=== PATIENT | female | born 1995 | race Caucasian/White ===

== ENCOUNTER 2017-03-03 17:29 | Inpatient (IN) | payer OTHER ==
[~2017-03-03] VITALS: Ht 157.5 cm; Wt 63.4 kg
[~2017-03-03 17:29] MED LIST: CEPH500C PO; HYDR-906 PO; IBUP-1542 PO; METO10TA92 PO; METR500T14 PO; POLY17PO6 PO; PREN-39 PO
[2017-03-03] MEDS ORDERED: FERR236T PO (18:13)
[2017-03-03 18:15] VITALS: BP 118/77; PULSE 97; RESP 18
[2017-03-03] MEDS ORDERED: LACTATED RINGER'S 1,000 ML IV SCH (19:59)
[2017-03-03] MEDS ORDERED: IBUPROFEN 600 MG TAB PO PRN (20:00)
[2017-03-03] MEDS ORDERED: METHYLERGONOVINE 0.2 MG INJ IM PRN (20:00)
[2017-03-03] MEDS ORDERED: OXYTOCIN 30 UNITS/LR 500 ML IV PRN (20:00)
[2017-03-03] MEDS ORDERED: ACETAMINOPHEN/CODEINE #3 TAB PO PRN (20:00)
[2017-03-03] MEDS ORDERED: LACTATED RINGER'S 1,000 ML IV PRN (20:00)
[2017-03-03] MEDS ORDERED: OXYTOCIN 30 UNITS/LR 500 ML IV SCH ×2 (20:00)
[2017-03-03] MEDS ORDERED: LIDOCAINE 1% (MPF) 30 ML INJ INJ PRN (20:00)
[2017-03-03] MEDS ORDERED: MISOPROSTOL 200 MCG TAB PR PRN (20:00)
[2017-03-03] MEDS ORDERED: AMPICILLIN 2 GM/NS (PMX) 100 ML IV ONE (20:00)
[2017-03-03] MEDS ORDERED: BUTORPHANOL 2 MG INJ IV PRN ×2 (20:00)
[2017-03-03] MEDS ORDERED: CARBOPROST 250 MCG INJ IM PRN (20:00)
--- NOTE | 2017-03-03 20:29 | HP ---
Date/Time of Note Date/Time of Note DATE: 03/03/17 TIME: 20:28 OB - History Hx of Present Free Text/Dictation @37+wks early labor : 2 Para: 1 Care: Good Care Ultrasounds: Normal mid trimester US Obstetrical Complications: None Medical Complications: None Past Family/Social History * Past Medical, Surgical, Family and Obstetric Histories reviewed from chart. OB Admission Exam Vital Signs Vital Signs Vital Signs Date Time Temp Pulse Resp B/P Pulse Ox O2 Delivery O2 Flow Rate FiO2 03/03/17 18:15 98.4 97 18 118/77 98 Room Air Physical Exam Cervical Dilatation: 4cm Effacement: 75% Station: -1 Membranes: Intact Heart Rate: 140's Accelerations: Accelerations Present Decelerations: No Decelerations Varibility: Moderate Contractions on Admission: 6-10 Minutes Apart OB Assessment/Plan Reason for admission: observation Plan: Expectant Management MICHELLE MUHAMMAD M.D. Mar 03, 2017 20:29
[2017-03-03] MEDS ORDERED: MINERAL OIL LIGHT 10 ML VIAL TOP PRN (20:30)
--- NOTE | 2017-03-03 20:59 | RADRPT ---
PROCEDURE: Obstetrical ultrasound greater than 14 weeks CLINICAL INDICATION: Contractions. No records TECHNIQUE: Real time sonographic imaging of the gravid uterus is performed transabdominally and mu ltiple static torre scale and Doppler images are submitted for review as are measurements. The image s are reviewed on the PACS. COMPARISON: No relevant exams are available FINDINGS: There is a single living intrauterine gestation in cephalic presentation. The heart beat is estimated at 144 bpm. The measurements are as follows: BPD:8.74 cm HC:32.12 cm AC:32.64 cm FL:7.20 cm Estimated gestational age is 36 weeks 2 days. The estimated date of delivery is 03/29/2017. The estimated weight is 2945 grams. Placenta is fundal and grade 3. There is no evidence of placenta previa or abruption. The amniotic fluid index is normal estimated at 12 cm. RPTAT:HJJR IMPRESSION: 1. Single viable intrauterine gestation in cephalic presentation estimated at 36 weeks 2 days with t he estimated date of delivery 03/29/2017. 2. Estimated weight 2945 g. 3. Amniotic fluid index of 12 cm Physician Jose Alfredo Date Time Electronically viewed and signed by Physician Jose Alfredo on 03/03/2017 20:59 JR/
[2017-03-03 21:50] LABS: ADD SCAN DIFF NO
[2017-03-03 21:55] LABS: BASOPHILS % 0.2 % (0.0-2.0); EOSINOPHILS % 0.3 % (0.0-7.0); HEMATOCRIT 36.6 % (37.0-47.0); HEMOGLOBIN 11.8 g/dl (12.0-16.0); LYMPHOCYTES # 2.6 10^3/ul (0.8-2.9); LYMPHOCYTES % 17.5 % (15.0-51.0); MEAN CORPUSCULAR HEMOGLOBIN 25.9 pg (29.0-33.0); MEAN CORPUSCULAR HGB CONC 32.2 g/dl (32.0-37.0); MEAN CORPUSCULAR VOLUME 80.3 fl (82.0-101.0); MEAN PLATELET VOLUME 10.2 fl (7.4-10.4); MONOCYTE # 1.1 10^3/ul (0.3-0.9); MONOCYTES % 7.4 % (0.0-11.0); NEUTROPHIL # 10.8 10^3/ul (1.6-7.5); NEUTROPHILS % 73.7 % (39.0-77.0); PLATELET COUNT 272 10^3/UL (140-415); RED BLOOD COUNT 4.56 10^6/ul (4.20-5.40); RED CELL DISTRIBUTION WIDTH 12.8 % (11.5-14.5); WHITE BLOOD COUNT 14.6 10^3/ul (4.8-10.8)
[2017-03-03] MEDS ORDERED: FENTAnyl 2MCG/ML-ROPIV 0.2% 100 ML ONE (21:57)
--- NOTE | 2017-03-03 22:29 | LDN ---
Date/Time of Note Date/Time of Note DATE: 03/03/17 TIME: 22:28 Delivery Summary Weeks of Gestation 37+ Placenta Delivered: Spontaneously Meconium: none Episiotomy: No Anesthesia type: Epidural Estimated blood loss: 200 Sponge & Needle done & correct: Yes All needle counts correct: Yes Any foreign bodies felt in the: No Problems: Delivery Information Apgars 1 Minute: 9 5 Minute: 9 Suctioning Nose & mouth suctioned at sai: Yes Delee suction performed: Yes Umbilical Cord Umbilical cord with: 3 Vessels Cord presentations: no nuchal cord Cord Blood was obtained: Yes Mother & Baby Disposition Disposition Mom & Baby to Maternity; Good: Yes Baby to NICU: No MICHELLE MUHAMMAD M.D. Mar 03, 2017 22:28
[2017-03-03 22:44] LABS: INR 0.93; PARTIAL THROMBOPLASTIN TIME 26.4 Sec (25.0-35.0); PROTIME 12.5 Sec (12.2-14.2)
[2017-03-03] MEDS ORDERED: FENTAnyl 2MCG/ML-ROPIV 0.2% 100 ML BAG EPI SCH (23:30)
[2017-03-03] MEDS ORDERED: NALOXONE (0.4 MG/ML) INJ IV PRN (23:30)
[2017-03-03] MEDS ORDERED: HYDROmorphONE 1 MG/ML SYG IV PRN ×2 (23:30)
[2017-03-03] MEDS ORDERED: ZOLPIDEM 5 MG TAB PO PRN (23:30)
[2017-03-03] MEDS ORDERED: DIPHENHYDRAMINE 50 MG INJ IV PRN (23:30)
[2017-03-03] MEDS ORDERED: ONDANSETRON 4 MG INJ IV PRN (23:30)
[2017-03-04] VITALS (7 sets, daily range): BP systolic 101–122; BP diastolic 51–68; PULSE 75–86; RESP 18
[2017-03-04] MEDS ORDERED: AMPICILLIN 1 GM/NS (PMX) 50 ML IV SCH
[2017-03-04] MEDS: LACTATED RINGER'S 1,000 ML IV* SCH ×3 (01:10→17:10)
[2017-03-04] MEDS ORDERED: SENNA/DOCUSATE NA (8.6MG/50MG) TAB PO PRN (01:30)
[2017-03-04] MEDS ORDERED: CARBOPROST 250 MCG INJ IM PRN (01:30)
[2017-03-04] MEDS ORDERED: BENZOCAINE 20% 56 ML SPRAY TOP PRN (01:30)
[2017-03-04] MEDS ORDERED: OXYTOCIN 30 UNITS/LR 500 ML IV PRN (01:30)
[2017-03-04] MEDS ORDERED: OXYCODONE/ASPIRIN (4.88/325) TAB PO PRN (01:30)
[2017-03-04] MEDS ORDERED: WITCH HAZEL/GLYCERIN PAD PR PRN (01:30)
[2017-03-04] MEDS ORDERED: MISOPROSTOL 200 MCG TAB PR PRN (01:30)
[2017-03-04] MEDS ORDERED: LANOLIN 7 GM TUBE TOP PRN (01:30)
[2017-03-04] MEDS ORDERED: ZOLPIDEM 5 MG TAB PO PRN (01:30)
[2017-03-04] MEDS ORDERED: METHYLERGONOVINE 0.2 MG INJ IM PRN (01:30)
[2017-03-04] MEDS: IBUPROFEN 600 MG TAB PO SCH ×3 (06:11→17:36)
[2017-03-04 06:43] LABS: ADD SCAN DIFF NO
[2017-03-04 06:54] LABS: ABNORMAL IP MESSAGE 1; BASOPHILS % 0.2 % (0.0-2.0); EOSINOPHILS # 0.1 10^3/ul (0.0-0.5); EOSINOPHILS % 0.3 % (0.0-7.0); HEMATOCRIT 33.8 % (37.0-47.0); HEMOGLOBIN 10.9 g/dl (12.0-16.0); LYMPHOCYTES # 3.1 10^3/ul (0.8-2.9); LYMPHOCYTES % 16.3 % (15.0-51.0); MEAN CORPUSCULAR HEMOGLOBIN 26.4 pg (29.0-33.0); MEAN CORPUSCULAR HGB CONC 32.2 g/dl (32.0-37.0); MEAN CORPUSCULAR VOLUME 81.8 fl (82.0-101.0); MEAN PLATELET VOLUME 10.4 fl (7.4-10.4); MONOCYTE # 1.7 10^3/ul (0.3-0.9); MONOCYTES % 8.8 % (0.0-11.0); NEUTROPHIL # 13.9 10^3/ul (1.6-7.5); NEUTROPHILS % 73.7 % (39.0-77.0); PLATELET COUNT 234 10^3/UL (140-415); RED BLOOD COUNT 4.13 10^6/ul (4.20-5.40); WHITE BLOOD COUNT 18.8 10^3/ul (4.8-10.8)
[2017-03-04] MEDS: SENNA/DOCUSATE NA (8.6MG/50MG) TAB PO SCH ×2 (09:19→20:53)
--- NOTE | 2017-03-04 17:39 | CONS ---
Date/Time of Note Date/Time of Note DATE: 03/04/17 TIME: 17:30 Consultation Date/Type/Reason Admit Date/Time Mar 03, 2017 at 20:06 OB triage consult Reason for Consultation This patient is a 21 years old 2 para 1 with estimated date of confinement of March 22, 2017 which makes her 37 weeks and 2 days now. She came to OB triage complaining of contractions On examination she was a well-developed well-nourished lady at term with the fairly regular contractions. In the past she had a normal spontaneous delivery once. No other surgeries or any major medical problem. Her general vital signs are basically within normal limits with blood pressure of 118/77, pulse rate of 97, respiration 18, temperature 98.4,,,,,, oxygen saturation on room temperature was 98 heart tone around 145 with fairly good variability occasional acceleration no deceleration noted On pelvic examination cervix was about 3 cm dilated 70% effaced and -2 station and the membrane was intact Laboratory Tests Test 03/03/17 21:25 03/04/17 06:20 White Blood Count 14.610^3/ul 18.810^3/ul Red Blood Count 4.5610^6/ul 4.1310^6/ul Hemoglobin 11.8g/dl 10.9g/dl Hematocrit 36.6% 33.8% Mean Corpuscular Volume 80.3fl 81.8fl Mean Corpuscular Hemoglobin 25.9pg 26.4pg Mean Corpuscular Hemoglobin Concent 32.2g/dl 32.2g/dl Red Cell Distribution Width 12.8% 13.0% Platelet Count 39122^3/UL 71530^3/UL Mean Platelet Volume 10.2fl 10.4fl Neutrophils % 73.7% 73.7% Lymphocytes % 17.5% 16.3% Monocytes % 7.4% 8.8% Eosinophils % 0.3% 0.3% Basophils % 0.2% 0.2% Nucleated Red Blood Cells % 0.0/100WBC 0.0/100WBC Neutrophils # 10.810^3/ul 13.910^3/ul Lymphocytes # 2.610^3/ul 3.110^3/ul Monocytes # 1.110^3/ul 1.710^3/ul Eosinophils # 0.010^3/ul 0.110^3/ul Basophils # 0.010^3/ul 0.010^3/ul Nucleated Red Blood Cells # 0.010^3/ul 0.010^3/ul Prothrombin Time 12.5Sec Prothrombin Time Ratio 1.0 INR International Normalized Ratio 0.93 Activated Partial Thromboplast Time 26.4Sec Hepatitis B Surface Antigen NEGATIVE Current Medications Medications (Trade) Dose Ordered Sig/Joe Route PRN Reason Start Time Stop Time Status Last Admin Dose Admin Lactated Ringer's 1,000 ml @ 125 mls/hr Q8H IV 03/03/17 19:59 03/04/17 01:15 DC 03/03/17 21:27 125 MLS/HR Ampicillin 100 ml @ 100 mls/hr ONCE ONCE IV 03/03/17 20:00 03/03/17 20:59 DC 03/03/17 21:28 100 MLS/HR Ampicillin (Ampicillin 1 Gm/ NS (Pmx)) 50 ml @ 100 mls/hr Q4H IV 03/04/17 00:00 03/04/17 01:15 DC Butorphanol Tartrate (Stadol) 1 mg Q2H PRN IV PAIN 03/03/17 20:00 03/04/17 01:15 DC Butorphanol Tartrate (Stadol) 2 mg Q2H PRN IV PAIN 03/03/17 20:00 03/04/17 01:15 DC 03/03/17 21:35 2 MG Lidocaine 30 ml 30 ml ONCE PRN INJ EPISIOTOMY/TEARING 03/03/17 20:00 03/04/17 01:15 DC Oxytocin/Lactated Ringer's 500 ml @ 0 mls/hr ONCE -MAY REPEAT X1 IV 03/03/17 20:00 03/04/17 01:15 DC 03/04/17 00:01 125 MLS/HR Oxytocin/Lactated Ringer's 500 ml @ 125 mls/hr ONCE IV 03/03/17 20:00 03/04/17 01:15 DC 03/03/17 22:28 125 MLS/HR Ibuprofen (Motrin) 600 mg ONCE PRN PO Mild Pain (Pain Score 1-3) 03/03/17 20:00 03/04/17 01:15 DC Acetaminophen/ Codeine Phosphate 2 tab 2 tab ONCE PRN PO Moderate to Severe Pain (4-10) 03/03/17 20:00 03/04/17 01:15 DC Lactated Ringer's 1,000 ml @ 2,000 mls/hr Q30M PRN IV PRE-EPIDURAL BOLUS 03/03/17 20:00 03/04/17 01:15 DC Oxytocin/Lactated Ringer's 500 ml @ 0 mls/hr ONCE PRN IV For Hemorrhage Management 03/03/17 20:00 03/04/17 01:15 DC Methylergonovine Maleate (Methergine) 0.2 mg ONCE PRN IM VAGINAL BLEEDING 03/03/17 20:00 03/04/17 01:15 DC Carboprost Tromethamine (Hemabate) 250 mcg ONCE PRN IM VAGINAL BLEEDING 03/03/17 20:00 03/04/17 01:15 DC Misoprostol (Cytotec) 1,000 mcg ONCE PRN [place] VAGINAL BLEEDING 03/03/17 20:00 03/04/17 01:15 DC Mineral Oil ONCE PRN TOP FOR DELIVERY 03/03/17 20:30 03/03/17 23:00 DC Fentanyl/ Ropivacaine 100 ml @ ud STK-MED ONCE .ROUTE 03/03/17 21:57 03/03/17 21:58 DC Naloxone HCl (Narcan) 0.1 mg Q2M PRN IV FOR RESP RATE 8 OR LESS 03/03/17 23:30 03/04/17 01:14 DC Hydromorphone HCl (Dilaudid) 0.2 mg Q3H PRN IV PAIN LEVEL 1-5 03/03/17 23:30 03/04/17 01:14 DC Hydromorphone HCl (Dilaudid) 0.4 mg Q3H PRN IV PAIN LEVEL 6-10 03/03/17 23:30 03/04/17 01:14 DC Diphenhydramine HCl (Benadryl) 25 mg Q6H PRN IV ITCHING 03/03/17 23:30 03/04/17 23:29 Ondansetron HCl (Zofran Inj) 4 mg Q6H PRN IV NAUSEA AND/OR VOMITING 03/03/17 23:30 03/04/17 23:29 Zolpidem Tartrate (Ambien) 5 mg HS MAY REPEAT X 1 PRN PO INSOMNIA 03/03/17 23:30 03/04/17 23:29 Fentanyl/ Ropivacaine 100 ml 100 ml EPIDURAL INFUSION EPI 03/03/17 23:30 03/04/17 01:14 DC Lactated Ringer's (Lr) 1,000 ml @ 125 mls/hr Q8H IV* 03/04/17 01:10 03/04/17 06:10 125 MLS/HR Ibuprofen (Motrin) 600 mg Q6 PO 03/04/17 06:00 03/04/17 12:36 600 MG Oxycodone/Aspirin (Percodan) 2 tab Q3H PRN PO PAIN LEVEL 6-10 03/04/17 01:30 Zolpidem Tartrate (Ambien) 5 mg QHS PRN PO INSOMNIA 03/04/17 01:30 Senna/Docusate Sodium (Senokot-S) 1 tab BID PO 03/04/17 09:00 03/04/17 09:19 1 TAB Senna/Docusate Sodium (Senokot-S) 1 tab BID PRN PO CONSTIPATION 03/04/17 01:30 [place]/ Glycerin (Tucks Pads) 1 pad BEDSIDE MEDICATION PRN [place] HEMORRHOID/EPISIOTMY PAIN 03/04/17 01:30 03/04/17 02:35 1 PAD Benzocaine (Dermoplast [place]) 1 spray BEDSIDE MEDICATION PRN TOP HEMORRHOID/EPISIOTMY PAIN 03/04/17 01:30 03/04/17 02:36 1 SPRAY Lanolin (Nwh-A-Ughokx) 1 applic BEDSIDE MEDICATION PRN TOP BEDSIDE FOR OSCAR TO NIPPLES 03/04/17 01:30 03/04/17 02:36 1 APPLIC Diphtheria/ Tetanus/Acell Pertussis 0.5 ml 0.5 ml ONCE ONCE IM* 03/05/17 09:00 03/05/17 09:01 Oxytocin/Lactated Ringer's 500 ml @ 0 mls/hr ONCE PRN IV For Hemorrhage Management 03/04/17 01:30 Methylergonovine Maleate (Methergine) 0.2 mg ONCE PRN IM VAGINAL BLEEDING 03/04/17 01:30 Carboprost Tromethamine (Hemabate) 250 mcg ONCE PRN IM VAGINAL BLEEDING 03/04/17 01:30 Misoprostol (Cytotec) 1,000 mcg ONCE PRN [place] VAGINAL BLEEDING 03/04/17 01:30 Constitutional: No chills, No diaphoresis, No disoriented, No febrile, No improved, No no complaints, No other, No poor po, No requiring IVF, No requiring O2 Eyes: No discharge, No no complaints, No other, No pain, No redness, No visual change ENT: No bleeding, No congestion, No discharge, No dysphagia, No no complaints, No other, No pain, No sore throat Respiratory: No cough, No no complaints, No other, No pain, No pleuritic pain, No shortness of breath, No sputum, No wheezing Cardiovascular: No chest pain, No edema, No lightheadedness, No no complaints, No orthopenea, No other, No palpitations, No paroxysmal nocturnal dyspnea Gastrointestinal: No blood, No constipation, No decreased appetite, No diarrhea , No flatus, No nausea, No no complaints, No other, No pain, No passing stool, No vomiting Genitourinary: other (I mentioned her cervix was about 3 cm dilated and 70% effaced head at -2 station and membranes intact), No bleeding, No discharge, No dysuria, No flank pain, No hematuria, No no complaints Musculoskeletal: No back pain, No bone/joint pain, No neck pain, No no complaints, No other, No restricted range of motion, No swelling Skin: No bruising, No erythema, No laceration, No no complaints, No other, No pruritis, No rash, No skin lesions Neurologic: other (Knee-jerk reflex normal) Additional Comments Patient was kept in the triage area the cervix was examined 2 hours later this time it was about 4 and half centimeter dilated with more effacement For this reason patient was admitted in labor and delivery room Social History Smoking Status: Never smoker Exam/Review of Systems Vital Signs Vitals Vital Signs Date Time Temp Pulse Resp B/P Pulse Ox O2 Delivery O2 Flow Rate FiO2 03/04/17 12:36 98.6 78 18 101/55 Room Air 03/03/17 18:15 98 Intake and Output 03/03/17 03/03/17 03/04/17 15:00 23:00 07:00 Intake Total 1975 ml Output Total 1100 ml Balance 875 ml Results Result Diagram: 03/04/17 0620 Results 24 hrs Laboratory Tests Test 03/03/17 21:25 03/04/17 06:20 White Blood Count 14.6 #H 18.8 #H Red Blood Count 4.56 4.13 L Hemoglobin 11.8 L 10.9 L Hematocrit 36.6 L 33.8 L Mean Corpuscular Volume 80.3 L 81.8 L Mean Corpuscular Hemoglobin 25.9 L 26.4 L Mean Corpuscular Hemoglobin Concent 32.2 32.2 Red Cell Distribution Width 12.8 13.0 Platelet Count 272 234 Mean Platelet Volume 10.2 # 10.4 Neutrophils % 73.7 73.7 Lymphocytes % 17.5 16.3 Monocytes % 7.4 8.8 Eosinophils % 0.3 0.3 Basophils % 0.2 0.2 Nucleated Red Blood Cells % 0.0 0.0 Neutrophils # 10.8 H 13.9 H Lymphocytes # 2.6 3.1 H Monocytes # 1.1 H 1.7 H Eosinophils # 0.0 0.1 Basophils # 0.0 0.0 Nucleated Red Blood Cells # 0.0 0.0 Prothrombin Time 12.5 Prothrombin Time Ratio 1.0 INR International Normalized Ratio 0.93 Activated Partial Thromboplast Time 26.4 Hepatitis B Surface Antigen NEGATIVE Medications Medications Current Medications Diphenhydramine HCl (Benadryl) 25 mg Q6H PRN IV ITCHING; Start 03/03/17 at 23:30 ; Stop 03/04/17 at 23:29 Ondansetron HCl 4 mg 4 mg Q6H PRN IV NAUSEA AND/OR VOMITING; Start 03/03/17 at 23:30; Stop 03/04/17 at 23:29 Lactated Ringer's (Lr) 1,000 ml @ 125 mls/hr Q8H IV* Last administered on 06:10; Admin Dose 125 MLS/HR; Start 03/04/17 at 01:10 Ibuprofen (Motrin) 600 mg Q6 PO Last administered on 03/04/17 12:36; Admin Dose 600 MG; Start 03/04/17 at 06:00 Oxycodone/Aspirin (Percodan) 2 tab Q3H PRN PO PAIN LEVEL 6-10; Start 03/04/17 at 01:30 Zolpidem Tartrate (Ambien) 5 mg QHS PRN PO INSOMNIA; Start 03/04/17 at 01:30 Senna/Docusate Sodium (Senokot-S) 1 tab BID PO Last administered on 03/04/17t 09 :19; Admin Dose 1 TAB; Start 03/04/17 at 09:00 Senna/Docusate Sodium (Senokot-S) 1 tab BID PRN PO CONSTIPATION; Start 03/04/17 at 01:30 Diphtheria/ Tetanus/Acell Pertussis 0.5 ml 0.5 ml ONCE ONCE IM* ; Start 03/05/17 at 09:00; Stop 03/05/17 at 09:01 Oxytocin/Lactated Ringer's 500 ml @ 0 mls/hr ONCE PRN IV For Hemorrhage Management; Start 03/04/17 at 01:30 Methylergonovine Maleate (Methergine) 0.2 mg ONCE PRN IM VAGINAL BLEEDING; Start 03/04/17 at 01:30 Carboprost Tromethamine (Hemabate) 250 mcg ONCE PRN IM VAGINAL BLEEDING; Start 03/04/17 at 01:30 Misoprostol (Cytotec) 1,000 mcg ONCE PRN [place] VAGINAL BLEEDING; Start 03/04/17 at 01:30 NITHYA AVILES MD Mar 04, 2017 17:39
--- NOTE | 2017-03-04 18:32 | QN ---
Documentation Comment Post normal vaginal delivery day 1 Afebrile abdomen soft uterus firm lochia moderate extremity normal plan of a.m. discharge discussed with the patient QUETA KYLE MD Mar 04, 2017 18:31
[2017-03-05 04:00] VITALS: BP 106/57; PULSE 79; RESP 18
[2017-03-05] MEDS: IBUPROFEN 600 MG TAB PO SCH ×3 (06:00→12:00)
[2017-03-05 09:00] VITALS: BP 99/55; PULSE 75; RESP 17
[2017-03-05] MEDS ORDERED: DIPHTH/TET/ACEL PERTUSS (ADULT) 0.5 ML VIAL IM* ONE (09:00)
[2017-03-05] MEDS: SENNA/DOCUSATE NA (8.6MG/50MG) TAB PO SCH (09:22)
--- NOTE | 2017-03-05 10:50 | PD.PPDC ---
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
--- NOTE | 2017-03-05 10:53 | DS ---
Date/Time of Note Date/Time of Note DATE: 03/05/17 TIME: 10:51 Discharge Summary Admission/Discharge Info Admit Date/Time Mar 03, 2017 at 20:06 Discharge Date/Time March 05, 2017 at 1045 Patient Condition: Good Procedures Normal vaginal delivery Hx of Present Illness Term Hospital Course Satisfactory uneventful Home Meds Reported Medications Ferrous Gluconate (Iron) 236 Mg Tablet, 236 MG PO DAILY, TAB 03/03/17 Vits W-Ca,Fe,Fa(<1MG) ( Vitamins) 1 Tab Tablet, 1 TAB PO DAILY , TAB 09/10/15 Discontinued Scripts Metoclopramide* (Reglan*) 10 Mg Tablet, 10 MG PO Q6H Y for NAUSEA AND OR VOMITING, #30 TAB Prov:ERIK EGAN MD 10/12/15 Hydrocodone Bit-Acetaminophen ([place]) 5-325 Mg Tablet, 1 TAB PO Q8 Y for SEVERE PAIN LEVEL 7-10, #20 TAB Prov:ERIK EGAN MD 10/12/15 Polyethylene Glycol* (Miralax*) 17 Gm Powd.pack, 17 GM PO BID Y for CONSTIPATION , #30 PACKET Prov:ERIK EGAN MD 10/12/15 Metronidazole (Flagyl) 500 Mg Tab, 500 MG PO TID for appendicitis , #21 TAB Prov:ERIK EGAN MD 10/12/15 Cephalexin* (Cephalexin*) 500 Mg Capsule, 500 MG PO TID for appendicitis , #21 CAP Prov:ERIK EGAN MD 10/12/15 Ibuprofen* (Ibuprofen*) 600 Mg Tab, 600 MG PO Q6, #20 TAB 0 Refills Prov:CIARA ROCHA MD 09/12/15 Primary Care Provider MD SAROJ Argueta HORMOZ MD Mar 05, 2017 10:52
== END 2017-03-05 15:54 | disposition home or self-care (01) | DRG 775 ==
LOC: OBT 17:29 → L-D 17:30 → OBT 20:24 → L-D 21:12 → PP1 03-04 00:50
PROVIDERS: ADMIT Obstetrics & Gynecology; ATTEND Obstetrics & Gynecology
PROC: 10E0XZZ Delivery of Products of Conception, External Approach (ICD-10-PCS; principal; 2017-03-03)
DX: O80 Encounter for full-term uncomplicated delivery (principal); Z37.0 Single live birth; Z3A.37 37 weeks gestation of pregnancy
CPT/HCPCS: 62319; 76815; 85025; 85610; 85730; 86592; 86900; 86901; 87340; 90715; G0463; J0290; J0595; J2590; J3010; J7120